=== PATIENT | male | born 1965 | race African-American/Black ===

== ENCOUNTER 2020-10-21 18:20 | Observation (INO) ==
[2020-10-21 19:23] LABS: Basophils % 0.5 % (0.0-0.8); Eosinophils # 0.1 10*3/uL (0.0-0.87); Eosinophils % 1.6 % (0.00-10.9); Hematocrit 44.6 VOL% (35.7-47.0); Hemoglobin 14.9 GM/DL (12.0-16.0); Lymphocytes # 1.5 10*3/uL (1.4-4.0); Lymphocytes % 34.3 % (21.3-54.2); Mean Corpuscular HGB Conc 33.4 GM/DL (32-36); Mean Corpuscular Volume 93.5 FL (87-102); Mean Platelet Volume 10.5 FL (9.6-12.0); Monocytes % 10.4 % (1.7-12.7); Neutrophils % 53.2 % (38.7-73.9); Platelet Count 187 T/CUMM (130-400); Red Blood Count 4.77 MC/CUMM (3.8-5.5); Red Cell Distribution Width 13.3 % (9.3-17.3); White Blood Count 4.3 T/CUMM (4-12)
[2020-10-21 19:36] LABS: Alanine Aminotransferase 35 U/L (13-56); Albumin 4.4 G/DL (3.4-5.0); Alkaline Phosphatase 110 U/L (45-117); Amylase 209 U/L (25-115); Aspartate Amino Transferase 46 U/L (0-37); Blood Urea Nitrogen 12 MG/DL (7-18); Calcium 10.1 MG/DL (8.5-10.1); Carbon Dioxide 27 MMOL/L (21-32); Estimated Glom Filtration Rate 119 ML/MIN; Glucose 77 MG/DL (74-106); Osmolality,Calculated 264.4 MOS/KG (273-304); Potassium 3.6 MMOL/L (3.5-5.1); Sodium 133 MMOL/L (136-145); Total Protein 8.7 G/DL (6.4-8.2)
[2020-10-21 19:39] LABS: Bacteria,Urine Occasional /HPF (Few); Bilirubin,Urine Negative (Negative); Blood, Urine Small mg/dL (Negative); Glucose,Urine (UA) Negative (Negative); Hyaline Casts,Urine 1 /LPF (0-3); Ketones,Urine 5 mg/dL (Negative); Mucus,Urine Occasional /LPF (Occasional); Nitrite,Urine Negative (Negative); Protein,Urine Negative; RBC,Urine 2 /HPF (0-4); Urine Appearance CLEAR (Clear); Urine Color Yellow (Yellow); Urine Specific Gravity 1.012 (1.001-1.035)
[2020-10-21 19:42] LABS: INR 1.1; PT Patient Result 12.8 SECS (10.5-12.0); Partial Thromboplastin Time 30.3 SECS (23.9-33.8)
[2020-10-21 19:44] LABS: Barbiturates Screen,Urine Negative (Negative); Benzodiazepines Screen,Urine Negative (Negative); Cannabinoid Screen,Urine Negative (Negative); Opiate Screen,Urine Negative (Negative); Phencyclidine Screen,Urine Negative (Negative)
[2020-10-21] MEDS ORDERED: THIAMINE 200 MG/2 ML VIAL IV STA (20:37)
[2020-10-21] MEDS ORDERED: MAGNESIUM HYDROXIDE SUSP 30 ML UDCUP PO PRN (20:41)
[2020-10-21] MEDS ORDERED: traZODone 50 MG TABLET PO PRN (20:41)
[2020-10-21] MEDS ORDERED: ARIPiprazole 10 MG TABLET PO SCH (21:00)
[2020-10-21] MEDS: FOLIC ACID 1 MG TABLET PO SCH (21:29)
[2020-10-21] MEDS: THIAMINE 100 MG TABLET PO SCH (21:29)
[2020-10-21] MEDS ORDERED: ZALEPLON 5 MG CAPSULE PO PRN (21:42)
[2020-10-21] MEDS ORDERED: guaiFENesin/DM ER 600-30 MG TABLET PO PRN (21:42)
[2020-10-21] MEDS ORDERED: DEXTROSE 50% 25 GM/50 ML VIAL IV PRN (21:42)
[2020-10-21] MEDS ORDERED: ONDANSETRON 4 MG/2 ML VIAL IV PRN (21:42)
[2020-10-21] MEDS ORDERED: GLUCAGON 1 MG VIAL IM PRN (21:42)
[2020-10-21] MEDS ORDERED: MORPHINE 4 MG/1 ML VIAL IV PRN (21:42)
[2020-10-21] MEDS ORDERED: ACETAMINOPHEN 325 MG TABLET PO PRN (21:42)
[2020-10-21] MEDS ORDERED: hydrALAZINE 20 MG/1 ML VIAL IV PRN (21:42)
[2020-10-21] MEDS ORDERED: NICOTINE 21 MG/24 HR PATCH TRANSDERM PRN (21:42)
[2020-10-21] MEDS ORDERED: diphenhydrAMINE CAP 25 MG CAPSULE PO PRN (21:42)
[2020-10-22] MEDS: BENZTROPINE 1 MG TABLET PO SCH ×3 (00:02→20:46)
[2020-10-22] MEDS: THIAMINE INJ 100 MG, FOLIC ACID INJ 1 MG, MULTIVITAMIN INJ 10 ML in DEXTROSE 5% NACL 0.... IV SCH ×2 (04:06→20:47)
[2020-10-22 07:06] LABS: Basophils % 0.8 % (0.0-0.8); Eosinophils # 0.1 10*3/uL (0.0-0.87); Eosinophils % 2.6 % (0.00-10.9); Hematocrit 42.7 VOL% (42.0-52.0); Hemoglobin 14.4 GM/DL (14.0-18.0); Lymphocytes # 1.9 10*3/uL (1.4-4.0); Lymphocytes % 48.3 % (21.2-54.2); Mean Corpuscular HGB Conc 33.7 GM/DL (32-36); Mean Corpuscular Volume 93.6 FL (87-102); Mean Platelet Volume 10.8 FL (9.6-12.0); Monocytes % 20.1 % (1.7-12.7); Neutrophils % 28.2 % (38.7-73.9); Platelet Count 211 T/CUMM (130-400); Red Blood Count 4.56 MC/CUMM (3.8-5.5); Red Cell Distribution Width 13.4 % (9.3-17.3); White Blood Count 3.8 T/CUMM (4-12)
[2020-10-22 07:21] LABS: Albumin 3.8 G/DL (3.4-5.0); Bilirubin,Total 1.6 MG/DL (0.2-1.0); Calcium 9.8 MG/DL (8.5-10.1); Osmolality,Calculated 267.1 MOS/KG (273-304); Potassium 3.9 MMOL/L (3.5-5.1); Total Protein 7.8 G/DL (6.4-8.2)
[2020-10-22] MEDS ORDERED: chlordiazePOXIDE 10 MG CAPSULE PO SCH (09:00)
[2020-10-22] MEDS ORDERED: amLODIPine 10 MG TABLET PO SCH (09:00)
[2020-10-22 09:23] LABS: Atypical Lymphocytes 1+; Eosinophils 2 % (0-10); Lymphocytes 48 % (20-55); Platelet Estimate Normal; Polychromasia Slight; Segmented Neutrophils 27 % (50-85); Total Cells Counted 100
[2020-10-22] MEDS: MULTIVITAMIN (CENTRUM) TABLET PO SCH (09:29)
[2020-10-22] MEDS: THIAMINE 100 MG TABLET PO SCH ×2 (09:29→20:46)
[2020-10-22] MEDS: FOLIC ACID 1 MG TABLET PO SCH ×2 (09:29→20:46)
[2020-10-22] MEDS: PANTOPRAZOLE 40 MG VIAL IV SCH (09:29)
[2020-10-22] MEDS: ENOXAPARIN 40 MG/0.4 ML SYRINGE SUBCUT SCH (09:29)
[2020-10-22] MEDS ORDERED: SODIUM CHLORIDE 0.9% 1,000 ML IV ONE (12:01)
[2020-10-22] MEDS: ARIPiprazole 5 MG TABLET PO SCH ×2 (12:34→20:46)
[2020-10-23 07:01] LABS: Calcium 8.8 MG/DL (8.5-10.1)
[2020-10-23 07:02] LABS: Osmolality,Calculated 275.5 MOS/KG (273-304); Potassium 3.5 MMOL/L (3.5-5.1)
[2020-10-23] MEDS: PANTOPRAZOLE 40 MG VIAL IV SCH (08:57)
[2020-10-23] MEDS: THIAMINE 100 MG TABLET PO SCH ×2 (08:59→20:25)
[2020-10-23] MEDS: MULTIVITAMIN (CENTRUM) TABLET PO SCH (08:59)
[2020-10-23] MEDS: BENZTROPINE 1 MG TABLET PO SCH ×2 (08:59→20:26)
[2020-10-23] MEDS: FOLIC ACID 1 MG TABLET PO SCH ×2 (08:59→20:26)
[2020-10-23] MEDS ORDERED: ERGOCALCIFEROL 50,000 UNIT CAPSULE PO SCH (09:00)
[2020-10-23] MEDS: ENOXAPARIN 40 MG/0.4 ML SYRINGE SUBCUT SCH (09:04)
[2020-10-23] MEDS: chlordiazePOXIDE 10 MG CAPSULE PO PRN (15:08)
[2020-10-23] MEDS: ARIPiprazole 5 MG TABLET PO SCH (20:26)
[2020-10-23] MEDS: THIAMINE INJ 100 MG, FOLIC ACID INJ 1 MG, MULTIVITAMIN INJ 10 ML in DEXTROSE 5% NACL 0.... IV SCH (20:54)
[2020-10-24] MEDS: chlordiazePOXIDE 10 MG CAPSULE PO PRN (01:06)
[2020-10-24] MEDS ORDERED: LORazepam 2 MG/1 ML VIAL IM PRN (03:04)
[2020-10-24] MEDS: FOLIC ACID 1 MG TABLET PO SCH (08:15)
[2020-10-24] MEDS: THIAMINE 100 MG TABLET PO SCH (08:15)
[2020-10-24] MEDS: BENZTROPINE 1 MG TABLET PO SCH (08:15)
[2020-10-24] MEDS: MULTIVITAMIN (CENTRUM) TABLET PO SCH (08:15)
[2020-10-24] MEDS: ENOXAPARIN 40 MG/0.4 ML SYRINGE SUBCUT SCH (08:19)
[2020-10-24] MEDS: PANTOPRAZOLE 40 MG VIAL IV SCH (08:20)
[2020-10-24] MEDS ORDERED: DEXTROSE 5% NACL 0.45% 1,000 ML IV SCH (10:00)
[2020-10-24] MEDS ORDERED: SODIUM CHLORIDE 0.9% 500 ML IV ONE (10:05)
[2020-10-24 21:47] VITALS: BP 112/85
== END 2020-10-24 23:04 ==
LOC: EDUNIT# → EDBD → EDSEX → N.ED 18:20 → N.EDINP 18:20 → SUATTDRO 21:42 → N.3E 22:41
PROVIDERS: ADMIT Internal Medicine; ATTEND Internal Medicine